=== PATIENT | female | born 1960 | race Caucasian/White ===

== ENCOUNTER 2016-07-07 08:51 | Emergency (ER) ==
[2016-07-07 09:16] LABS: MANUAL DIFF NEEDED? NO
[2016-07-07 09:18] LABS: BASO% 0.3 % (0.0-0.8); EOS# 0.13 X1000 (0.0-0.7); EOS% 1.8 % (0.0-10.0); HEMATOCRIT 42.2 % (37.0-47.0); HEMOGLOBIN 13.8 g/dL (12.0-16.0); IMM GRAN# 0.01 X1000 (0.0-0.04); IMM GRAN% 0.1 % (0.0-0.5); LYMPH# 2.11 X1000 (1.2-3.4); LYMPH% 29.9 % (20.5-51.1); MCH 29.5 PG (27-31); MCHC 32.7 g/dL (33-37); MCV 90.2 FL (81-99); MONO# 0.58 X1000 (0.11-0.59); MONO% 8.2 % (1.7-9.3); MPV 9.6 FL (7.4-10.4); NEUT% 59.7 % (42.2-75.2); PLT 276 X1000 (130-400); RBC 4.68 XMIL (4.2-5.4)
--- NOTE | 2016-07-07 09:24 | EKG Report ---
Test Performed on : 07/07/2016 09:01:43 AM Test Reason : CHEST PAIN Blood Pressure : / mmHG Vent. Rate : 053 BPM Atrial Rate : 053 BPM P-R Int : 160 ms QRS Dur : 088 ms QT Int : 496 ms P-R-T Axes : 021 002 027 degrees QTc Int : 465 ms Sinus bradycardia. with sinus arrhythmia. Low voltage QRS Borderline ECG No previous ECGs available Unconfirmed Result
[2016-07-07 09:33] LABS: ALBUMIN 3.8 g/dL (3.5-5.0); CALCIUM 9.5 mg/dL (8.8-10.2); POTASSIUM 4.3 mmol/L (3.5-5.1); TOTAL BILIRUBIN 0.3 mg/dL (0.20-1.00); TOTAL PROTEIN 6.7 g/dL (6.3-8.3)
[2016-07-07 09:38] LABS: INR 0.94 (0.86-1.15); PROTIME 12.9 Seconds (12.1-15.5); PTT PL 33.4 Seconds (22.6-43.9)
--- NOTE | 2016-07-07 10:10 | ED EKG INTERP ---
EKG Interpretation - EKG Time of EKG reading by physician:: 09:12 EKG Read and Signed by:: Stefan Gamboa EKG Interpretation (*Must complete 3 of following elements*): Normal Rate: 53 Rhythm: Sinus Bradycardia with sinus arrhythmia [place]: normal MO Interval: normal Attestation - Scribe Verification/Attestation Scribe:: Antonio Urbina Acting as Scribe for:: Stefan Gamboa Scribe documention review:: This chart was documented by a scribe and accurately reflects the service the provider performed and the decisions made by the provider.
--- NOTE | 2016-07-07 11:13 | PROVIDER DOCUMENTATION ---
HPI-General Adult - General Chief Complaint: Chest Pain Stated Complaint: Chest pain / Left jaw numbness Time Seen by Provider: 07/07/16 11:02 Source: patient Allergies/Adverse Reactions: Patient Allergies Allergy/AdvReac Type Severity Reaction Status Date / Time meperidine HCl * Allergy NAUSEA Verified 07/07/16 08:58 [From Demerol] moxifloxacin HCl * Allergy ANAPHYLAXIS Verified 07/07/16 08:58 [From Avelox] vancomycin Allergy ANAPHYLAXIS Verified 07/07/16 08:58 - History of Present Illness -Gen Adult Nature of Presenting Problems: Pt. is 56 yof that presents with c/o CP that began after having a CTA of the cardiac vessels. Pt. reports after she received the dye and was about to be released from her study, she began to have pressure in the left side of her chest that radiated into her left jaw. Pt. was brought to the ED for evaluation. At time of exam, all symptoms had resolved. Location of Pain/Injury: reports: chest. denies: head, face, mouth, neck, upper extremity, hand(s), abdomen, back, pelvis, genitalia, lower extremity, feet, upper body, lower body, generalized Pain Radiation: reports: jaw Quality of Pain: reports: pressure. denies: aching, burning, cramping, dull, fullness, indigestion, sharp, stabbing, tearing, throbbing, tightness Severity: reports: moderate. denies: mild, severe Onset/Duration: reports: abrupt, just prior to arrival Timing: reports: gone now. denies: still present, improving, resolved prior to arrival, intermittent, constant, changing over time, getting worse Context/Activities at Onset: reports: light activity. denies: recent emotional stress, recent physical stress, recent trauma history, possible bad food, cold exposure, out of country travel Modifying Factors: improves with: nothing Associated Symptoms: reports: chest pain, shortness of breath. denies: anxiety , arm pain, back/neck pain, constipation, cough, diaphoresis, diarrhea, dizziness, EENT symptoms, fatigue, fever/chills, genitourinary problems, headaches, heartburn, joint pain, loss of appetite, malaise, muscle aches, sinus congestion/drainage, nausea, rash, seizure, sensory/motor loss, pain with inspiration, swelling/mass in abdomen, syncope, vomiting, weakness, trouble walking Similar Symptoms Previously?: No Recently seen or treated by another doctor?: No Review of Systems - Adult - REVIEW OF SYSTEMS - ADULT Constitutional: reports: see HPI. denies: chills, fever, fatique Eyes: reports: see HPI. denies: discharge, blurred vision, double vision Ears, Nose, Mouth & Throat: reports: see HPI. denies: ear discharge, ear pain, nose pain, loose teeth, mouth/dental pain, throat pain, throat swelling Cardiovascular: reports: see HPI, chest pain. denies: edema, heart murmur, irregular heart rate, palpitations, syncope Respiratory: reports: see HPI, shortness of breath. denies: cough, dyspnea on exertion, pleurisy Gastrointestinal: reports: see HPI. denies: abdominal pain, diarrhea, nausea, vomiting Genitourinary: reports: see HPI. denies: dysuria, flank pain, hematuria, incontinence, urgency Musculoskeletal: reports: see HPI. denies: bone pain, back pain, joint pain, muscle aches, neck pain Integumentary: reports: see HPI. denies: hives, itching, rash, skin thickening Neurological: reports: see HPI. denies: ataxia, headache/migraines, numbness, seizure, tremors Psychiatric: reports: see HPI. denies: anxiety, depression, emotional problems , insomnia, panic attacks, suicidal thoughts Endocrine: reports: see HPI. denies: change in skin pigment, heat intolerance, increased hunger, polyuria Hematologic/Lymphatic: reports: see HPI. denies: blood clots, lymphedema, prolonged bleeding, transfusions Allergic/Immunologic: reports: see HPI. denies: asthma, food allergy, hay fever , urticaria Past History - Adult - PAST MEDICAL HISTORY-ADULT Review of Records: reports: Old Records Reviewed, Nursing Assessment Review, Medications Reviewed, Social history reviewed & non-contributory. Physical Exam-General - PHYSICAL EXAM-ADULT Initial Vital Signs Reviewed: Yes - CONSTITUTIONAL General Appearance: alert, no apparent distress, obese. negative: thin, anxious , lethargic, slow to respond, obtunded, combative - EYES Eyes: PERRL/EOMI, pink conjunctivae. negative: conjuctival exudate, photophobia , subconjunctival hemorrhage - HEAD, EARS, NOSE, MOUTH & THROAT HENMT: normocephalic/atraumatic, moist mucous membranes. negative: angioedema, frontal tenderness, maxillary tenderness - NECK Neck: non-tender, full range of motion, supple, normal inspection. negative: lymphadenopathy, trachial deviation, thyromegaly - RESPIRATORY Respiratory: lungs clear, normal breath sounds. negative: crackles, rales, rhonchi, stridor, wheezing - CARDIOVASCULAR Cardiovascular: normal peripheral pulses, regular rate, rhythm, no edema, no JVD , no murmur. negative: extra beats, friction rub, irregularly irregular - CHEST (BREASTS) Chest/Breast: deferred - GASTROINTESTINAL (ABDOMEN) Abdominal Exam: normal bowel sounds, non tender, soft. negative: distended, guarding, rigid, rebound, tenderness, hernia, mass - GENITOURINARY Female Genitalia/Pelvic Exam: deferred Rectal Exam: deferred Hemoccult Exam: deferred - LYMPHATIC Lymphatic: no adenopathy. negative: axilla node tender, cervical node tenderness - MUSCULOSKELETAL Back Exam: normal inspection, no CVA tenderness, no vertebral tenderness. negative: muscle spasm, vertebral tenderness Extremity: normal range of motion, non-tender, normal gait, normal inspection. negative: deformity, erythema, inflammation, swelling, tenderness Peripheral Pulses: radial (R): 2+, radial (L): 2+ - SKIN Integumentary: normal color, normal turgor, warm/dry. negative: cyanosis, diaphoresis, ecchymosis, erythema, jaundice, mottled, pallor, petechiae, purpura , rash, swelling, tenderness - NEUROLOGIC Neurologic: grossly normal, no motor/sensory deficits. negative: aphasia, facial droop, focal weakness, motor weakness, sensory deficit - PSYCHIATRIC Psych/Mental Status: normal mood/affect, normal thought content, normal thought process, oriented x 3. negative: anxious, paranoid, tearful Progress - PLAN OF CARE/RESULTS Progress/Plan/Lab Results: Discussed results and plan of care with patient. Patient agrees with plan and verbalizes understanding. Vital Signs Temp Pulse Resp BP Pulse Ox 07/07/16 08:52 98.2 F 49 L 16 170/91 100 meperidine HCl * [From Demerol] Allergy (Verified 07/07/16 08:58) NAUSEA moxifloxacin HCl * [From Avelox] Allergy (Verified 07/07/16 08:58) ANAPHYLAXIS vancomycin Allergy (Verified 07/07/16 08:58) ANAPHYLAXIS Red Man Syndrome Laboratory 07/07/16 07/07/16 07/07/16 09:15 09:15 09:15 WBC 7.06 RBC 4.68 Hgb 13.8 Hct 42.2 MCV 90.2 MCH 29.5 MCHC 32.7 L RDW Std Deviation 13.9 Plt Count 276 MPV 9.6 Immature Gran % (Auto) 0.1 Neut % (Auto) 59.7 Lymph % (Auto) 29.9 [place] % (Auto) 8.2 Eos % (Auto) 1.8 Baso % (Auto) 0.3 Immature Gran # (Auto) 0.01 Neut # 4.21 Lymph # 2.11 [place] # 0.58 Eos # 0.13 Baso # 0.02 PT 12.9 INR 0.94 APTT (Factor Assay) 33.4 D-Dimer 0.63 H Sodium Potassium Chloride Carbon Dioxide Anion Gap BUN Creatinine Estimated GFR/1.73 m2 BUN/Creatinine Ratio Glucose Calculated Osmolality Calcium Magnesium Total Bilirubin AST ALT Alkaline Phosphatase Creatine Kinase Troponin T Kji-S-Omhguwplusd Pept 68 Total Protein Albumin Globulin Albumin/Globulin Ratio 07/07/16 07/07/16 09:15 09:15 WBC RBC Hgb Hct MCV MCH MCHC RDW Std Deviation Plt Count MPV Immature Gran % (Auto) Neut % (Auto) Lymph % (Auto) [place] % (Auto) Eos % (Auto) Baso % (Auto) Immature Gran # (Auto) Neut # Lymph # [place] # Eos # Baso # PT INR APTT (Factor Assay) D-Dimer Sodium 138 Potassium 4.3 Chloride 104 Carbon Dioxide 28 Anion Gap 6 BUN 15 Creatinine 1.1 H Estimated GFR/1.73 m2 51 BUN/Creatinine Ratio 14 Glucose 102 Calculated Osmolality 277 Calcium 9.5 Magnesium 2.0 Total Bilirubin 0.30 AST 16 ALT 23 Alkaline Phosphatase 75 Creatine Kinase 67 Troponin T < 0.010 Dbe-L-Qpclfulojch Pept Total Protein 6.7 Albumin 3.8 Globulin 3.0 Albumin/Globulin Ratio 1.0 Orders Category Date Time Status Cardiac Monitoring DIRECTED Care 07/07/16 08:56 Active Oxygen Therapy- ED Nursing DIRECTED Care 07/07/16 08:56 Active Saline Loc NOW Care 07/07/16 08:56 Active CBC WITH ELECTRONIC DIFF [HEME] Stat Lab 07/07/16 09:15 Completed CK PROFILE [SP CHEM] Stat Lab 07/07/16 09:15 Completed CK PROFILE [SP CHEM] Stat Lab 07/07/16 11:09 Ordered COMPREHENSIVE METABOLIC PANEL [CHEM] Stat Lab 07/07/16 09:[address] D-D[address]ER [address] [COAG] Stat Lab 07/07/16 09:15 Completed MAGNESIUM [CHEM] Stat Lab 07/07/16 09:15 Completed PRO B-NATRIURETIC PEPTIDE Stat Lab 07/07/16 09:[address]IME WITH INR PL [COAG] Stat Lab 07/07/16 09:[address] [COAG] Stat Lab 07/07/16 09:15 Completed TROPONIN T Stat Lab 07/07/16 09:15 Completed TROPONIN T Stat Lab 07/07/16 11:09 Ordered Acetaminophen [Tylenol] Med 07/07/16 11:36 Discontinued 1,000 mg PO NOW ONE EKG [EKG] Stat Ther 07/07/16 08:56 Draft EKG [EKG] Stat Ther 07/07/16 11:09 Ordered Laboratory Tests 07/07/16 07/07/16 07/07/16 09:15 09:15 09:15 WBC RBC Hgb Hct MCV MCH MCHC RDW Std Deviation Plt Count MPV Immature Gran % (Auto) Neut % (Auto) Lymph % (Auto) [place] % (Auto) Eos % (Auto) Baso % (Auto) Immature Gran # (Auto) Neut # Lymph # [place] # Eos # Baso # PT INR APTT (Factor Assay) D-Dimer Sodium 138 Potassium 4.3 Chloride 104 Carbon Dioxide 28 Anion Gap 6 BUN 15 Creatinine 1.1 H Estimated GFR/1.73 m2 51 BUN/Creatinine Ratio 14 Glucose 102 Calculated Osmolality 277 Calcium 9.5 Magnesium 2.0 Total Bilirubin 0.30 AST 16 ALT 23 Alkaline Phosphatase 75 Creatine Kinase 67 Troponin T < 0.010 Aiu-E-Wssvztagjmn Pept 68 Total Protein 6.7 Albumin 3.8 Globulin 3.0 Albumin/Globulin Ratio 1.0 07/07/16 07/07/16 09:15 09:15 WBC 7.06 RBC 4.68 Hgb 13.8 Hct 42.2 MCV 90.2 MCH 29.5 MCHC 32.7 L RDW Std Deviation 13.9 Plt Count 276 MPV 9.6 Immature Gran % (Auto) 0.1 Neut % (Auto) 59.7 Lymph % (Auto) 29.9 [place] % (Auto) 8.2 Eos % (Auto) 1.8 Baso % (Auto) 0.3 Immature Gran # (Auto) 0.01 Neut # 4.21 Lymph # 2.11 [place] # 0.58 Eos # 0.13 Baso # 0.02 PT 12.9 INR 0.94 APTT (Factor Assay) 33.4 D-Dimer 0.63 H Sodium Potassium Chloride Carbon Dioxide Anion Gap BUN Creatinine Estimated GFR/1.73 m2 BUN/Creatinine Ratio Glucose Calculated Osmolality Calcium Magnesium Total Bilirubin AST ALT Alkaline Phosphatase Creatine Kinase Troponin T Ejg-P-Yxqthxdbtlf Pept Total Protein Albumin Globulin Albumin/Globulin Ratio - CONSULTS/PCP/HOSPITALIST Notification #1 *Consult/PCP/Hospitalist*: Dr. Gillis Time Discussed: 11:46 Reason/Comments: Consult Consult Disposition: other (Can d/c patient and have them follow up with GI. Also his office will call patient for f/u appointment.) Departure - Departure Time of Disposition Order: 11:48 DIAGNOSIS: Reaction to contrast media Chest pain Qualifiers: Chest pain type: other chest pain Qualified Code(s): R07.89 - Other chest pain Disposition: HOME 01 Certified Medical Emergency: Emergent Condition: Stable Additional Instructions: Follow up with primary care physician Follow up with GI physician Return to ED for any concerns or worsening of symptoms ED Follow Up Instructions: You have been treated by a care provider in the Emergency Department. These instructions are being provided to you so you can have an understanding of how to care for yourself upon discharge. Upon discharge from the Emergency Department, you are responsible for making arrangements for follow-up care by a physician of your choice. Take all prescribed medications as directed. Return to the Emergency Department immediately for any new or worsening symptoms. You may call the Physician Referral phone number at [phone] to obtain a list of Physicians who are taking new patients. Referrals: None,PCP [Primary Care Provider] - Jesus Alberto Richards MD [STAFF PHYSICIAN] - Attestation - Physician/ Mid-level Attestation Patient care was provided by Mid-level provider (SPANISH INTERPRETER/TRANSLATOR/PA):: Yes Mid-level provider:: [place] Mid-level documentation review:: The Mid-level provider documentation, treatment plan and medical decision making was reviewed by the physician who agrees with all treatment and medical decision making by the MLP.
[2016-07-07] MEDS ORDERED: TYLENOL PO ONE (11:36)
--- NOTE | 2016-07-07 12:02 | EKG Report ---
Test Performed on : 07/07/2016 11:13:14 AM Test Reason : ekg #2 Blood Pressure : / mmHG Vent. Rate : 053 BPM Atrial Rate : 053 BPM P-R Int : 156 ms QRS Dur : 090 ms QT Int : 488 ms P-R-T Axes : 036 005 018 degrees QTc Int : 457 ms Sinus bradycardia. Low voltage QRS Borderline ECG When compared with ECG of 07-JUL-2016 09:01, (Unconfirmed) No significant change was found Unconfirmed Result
[2016-07-07 14:28] VITALS: BP 119/82
== END 2016-07-07 13:10 | disposition home or self-care (01) ==
LOC: P.ED 08:51
DX: R07.89 Other chest pain (principal); T50.8X5A Adverse effect of diagnostic agents, initial encounter; R68.84 Jaw pain; R06.02 Shortness of breath; E66.09 Other obesity due to excess calories; Z68.36 Body mass index [BMI] 36.0-36.9, adult; R94.31 Abnormal electrocardiogram [ECG] [EKG]; R06.09 Other forms of dyspnea
CPT/HCPCS: 36415; 75574; 80053; 82550; 83735; 83880; 84484; 85025; 85379; 85610; 85730; 93005; 99284; Q9967